=== PATIENT | female | born 1970 | race Caucasian/White ===

== ENCOUNTER 2016-11-01 18:16 | Emergency (ER) | payer OTHER ==
[~2016-11-01] VITALS: Ht 162.6 cm; Wt 102.5 kg
[~2016-11-01 18:16] MED LIST: ANTIVERT25 MG PO; INDERAL20 MG PO; LISINOPRIL2.5 MG PO; METFORMIN HCL500 M1 PO; PREDNISONE10 MG PO; TAPAZOLE10 MG PO; VALIUM2 MG PO; ZITHROMAX250 MG PO; ZOFRAN4 MG PO
[2016-11-01 19:09] LABS: HEMATOCRIT 38.6 % (36.0-46.0); MCH 27.5 PG (29.0-34.0); MCHC 34.5 G/DL (30.0-36.0); MCV 79.8 FL (83-99); MEAN PLAT.VOLUME 11.7 uM^3 (9.5-12.4); PLATELET COUNT 130 K/uL (156-360); RBC DIS.WIDTH-CV 14.5 % (11.8-14.6); RBC DIS.WIDTH-SD 41.6 % (39-53); RED BLOOD COUNT 4.84 M/uL (3.80-5.20); WHITE BLOOD COUNT 5.6 K/uL (4.1-10.2)
[2016-11-01 19:19] LABS: CHLORIDE 104 mEq/L (99-109); POTASSIUM 2.8 mEq/L (3.7-5.4); SODIUM 140 mEq/L (136-147)
[2016-11-01 19:21] LABS: GLUCOSE 111 mg/dL (70-99)
[2016-11-01 19:22] LABS: ANION GAP 12 MEQ/L (2-14)
[2016-11-01 19:24] LABS: ALKALINE PHOSPHATASE 64 IU/L (3-129)
[2016-11-01 19:25] LABS: GFR ESTIMATE (CALCULATED) 47 mL/min/
[2016-11-01 19:26] LABS: UREA NITROGEN (BUN) 22 mg/dL (9-23)
[2016-11-01 19:35] LABS: QUANTITATIVE HCG < 4.0 MIU/ML
[2016-11-01 22:02] LABS: MAGNESIUM 1.7 mg/dL (1.3-2.7)
[2016-11-01] MEDS ORDERED: POTASSIUM CHLO20 ME2 PO (22:27)
[2016-11-01] MEDS ORDERED: MECLIZINE HCL25 MG PO (22:27)
[2016-11-01 22:33] LABS: CREATINE KINASE 223 IU/L (1-294)
[2016-11-01 22:52] VITALS: BP 140/58
== END 2016-11-01 22:54 | disposition home or self-care (01) ==
LOC: EME 18:16
DX: E87.6 Hypokalemia (principal); R42 Dizziness and giddiness; J06.9 Acute upper respiratory infection, unspecified; S29.011A Strain of muscle and tendon of front wall of thorax, initial encounter; X58.XXXA Exposure to other specified factors, initial encounter; E11.9 Type 2 diabetes mellitus without complications; Z87.891 Personal history of nicotine dependence
CPT/HCPCS: 71020; 80053; 81003; 82550; 83735; 84702; 85027; 99281; 99284